=== PATIENT | male | born 1985 | race Caucasian/White ===

== ENCOUNTER 2018-06-24 10:04 | Emergency (ER) | payer SELFPAY ==
[~2018-06-24 10:04] MED LIST: CEP500 PO; LOR5 PO; PEN250 PO; PER PO; PRE20 PO
--- NOTE | 2018-06-24 10:06 | ER Report ---
History and Physical Time Seen By MD: 10:07 HPI/ROS CHIEF COMPLAINT: Dental pain HISTORY OF PRESENT ILLNESS: Patient is a 33-year-old male presents emergency department complaining of dental pain to the upper left side of the mouth. The patient states that he does not have a dentist. He reports that he was drinking a Monster drink this morning and that causes severe pain to his teeth. He is having no difficulty breathing no difficulty swallowing. Allergies: Coded Allergies: ketorolac (Verified Allergy, Mild, ITCHING, 06/24/18) tramadol (Verified Allergy, Mild, ITCHING, 06/24/18) Home Meds Discontinued Reported Medications Penicillin V Potassium (Penicillin Vk) 250 Mg Tab, 500 MG PO QID, #28 0 Refills 01/19/11 Acetaminophen/Hydrocodone (Lortab 5/500) 5 Mg/500 Mg Tab, 1 TAB PO Q4-6H PRN, #20 0 Refills 01/19/11 [None] No Conflict Check, 0 Refills 01/19/11 Past Medical/Surgical History Noncontributory Hx Smoking: Yes Hx Substance Use Disorder: No Hx Alcohol Use: Yes (OCC) Constitutional Vital Sign - Last 24 Hours 06/24/18 10:10 Temp 98.1 Pulse 88 Resp 16 B/P (MAP) 139/95 Pulse Ox 94 O2 Delivery Room Air Physical Exam General Appearance: Alert, no distress. Eyes: Pupils equal and round no pallor or injection. ENT, Mouth: Ears: Tympanic membranes are normal. Nose: No bleeding. Mouth: Mucous membranes are moist. Poor dentition with erosion to left lateral incisor and left 2nd premolar. No evidence of dental abscess or fluid collection Throat: No erythema or exudates there is no tonsillar hypertrophy and uvula is midline. Musculoskeletal: Neck is supple non tender, no adenopathy. Skin: Warm and dry, no rashes. Medical Decision Making ED Course/Re-evaluation ED Course Patient with multiple dental caries. Plan will be outpatient treatment with oral pain medicine and antibiotics. Decision to Disposition Date: Jun 24, 2018 Decision to Disposition Time: 10:26 Depart Departure Latest Vital Signs Vital Signs Date Time Temp Pulse Resp B/P (MAP) Pulse Ox O2 Delivery O2 Flow Rate FiO2 06/24/18 10:10 98.1 88 16 139/95 94 Room Air Impression: Primary Impression: Dental caries Condition: Improved Disposition: HOME OR SELF-CARE New Scripts Amoxicillin (AMOXICILLIN) 500 Mg Capsule 1 CAP PO Q8H, #15 CAPSULE 0 Refills TAKE ONE CAPSULE BY MOUTH EVERY 8 HOURS Prov: MOOSE HUBER MD 06/24/18 Patient Instructions: Dental Caries (DC) Additional Instructions: Call [facility] [facility] to schedule an appointment for dental care. Address: [address] [place] [address] [place] [address] MOOSE HUBER MD Jun 24, 2018 10:06
[2018-06-24] MEDS ORDERED: AMOXICILLIN 500 MG CAP PO ONE (10:25)
[2018-06-24] MEDS ORDERED: NAPROXEN 500 MG TAB PO ONE (10:25)
[2018-06-24] MEDS ORDERED: LOR5/325 PO (10:27)
[2018-06-24] MEDS ORDERED: AMOX-362 PO (10:27)
[2018-06-24 10:30] VITALS: BP 137/95
== END 2018-06-24 10:38 | disposition home or self-care (01) ==
LOC: ER 10:08
DX: K02.9 Dental caries, unspecified (principal)
CPT/HCPCS: 99283

== ENCOUNTER 2018-07-03 13:25 | Emergency (ER) | payer OTHER ==
[~2018-07-03 13:25] MED LIST changes: +AMOX-362 PO; +LOR5/325 PO
[2018-07-03 13:32] VITALS: BP 148/80
--- NOTE | 2018-07-03 13:35 | ER Report ---
History and Physical Time Seen By MD: 13:34 HPI/ROS CHIEF COMPLAINT: Dental pain HISTORY OF PRESENT ILLNESS: 33-year-old male presents emergency Department with dental pain was seen here approximately 9 days ago for the exact same complaint was prescribed medication referred to a dentist which she chose not to go to returns emergency department today asking for more pain medication Sharma as he was not able to get to a dentist yet patient has no new symptoms the same location the pain no halitosis patient is simple been noncompliant is in requesting more narcotic pain medication REVIEW OF SYSTEMS: Respiratory: No cough, no dyspnea. Cardiovascular: No chest pain, no palpitations. Gastrointestinal: No vomiting, no abdominal pain. Musculoskeletal: No back pain. Remainder of the 14 system rev: Yes Allergies: Coded Allergies: ketorolac (Verified Allergy, Mild, ITCHING, 06/24/18) tramadol (Verified Allergy, Mild, ITCHING, 06/24/18) Home Meds Active Scripts Hydrocodone Bit/Acetaminophen (HYDROCODON-ACETAMINOPHEN 5-325) 1 Each Tablet, 1 EACH PO Q4-6H PRN for PAIN, #12 TAB 0 Refills TAKE ONE TABLET BY MOUTH EVERY 4-6 HOURS NEEDED FOR PAIN Prov:MOOSE HUBER MD 06/24/18 Amoxicillin (AMOXICILLIN) 500 Mg Capsule, 1 CAP PO Q8H, #15 CAPSULE 0 Refills TAKE ONE CAPSULE BY MOUTH EVERY 8 HOURS Prov:MOOSE HUBER MD 06/24/18 Reviewed Nurses Notes: Yes Old Medical Records Reviewed: Yes Hx Smoking: Yes Hx Substance Use Disorder: No Hx Alcohol Use: Yes (OCC) Physical Exam General appearance: Alert no distress. Respiratory: Chest is non tender, lungs are clear to auscultation. Cardiac: Regular rate and rhythm [ ] Exam deferred by patient DIFFERENTIAL DIAGNOSIS: After history and physical exam differential diagnosis was considered for drug-seeking behavior Medical Decision Making ED Course/Re-evaluation ED Course ED clinical course 33-year-old male returns emergency Department 9 days after being seen for reported dental caries had a medication prescribed returns requesting more informed the patient that at this time we do not refill pain medication prescriptions notably continue prescribing medications for patient's without follow-up patient has admitted that he has been noncompliant with his follow-up is still requesting pain medication I informed him that this would not be up to be done at this time and to follow-up with his dentist as originally prescribed patient understands at the time of discharge Decision to Disposition Date: Jul 03, 2018 Decision to Disposition Time: 13:36 Depart Departure Impression: Primary Impression: Dental caries Condition: Condition Unchanged Disposition: HOME OR SELF-CARE Referrals: TAMIA CARMONA MD 5 Days Patient Instructions: Dental Caries (GEN) HARSHA NAQVI MD Jul 03, 2018 13:35
== END 2018-07-03 14:07 | disposition home or self-care (01) ==
LOC: ER 13:39
DX: K08.89 Other specified disorders of teeth and supporting structures (principal); K02.9 Dental caries, unspecified
CPT/HCPCS: 99281